=== PATIENT | male | born 1990 | race Caucasian/White ===

== ENCOUNTER → 2016-06-09 | Outpatient (REF) | payer BC ==
[~2016-06-09] MED LIST: ADV250-14 IH; CETI10TA20 PO; HYDR-3702 PO; IBP200T PO; KETO10TA PO; LRT10T PO; MONT10TA21 PO
[2016-06-09 11:51] LABS: BILIRUBIN,URINE Negative (Negative); CLARITY,URINE Clear; COLOR,URINE Yellow; GLUCOSE, URINE (UA) Negative (Negative); LEUKOCYTE ESTERASE ,URINE Negative (Negative); UROBILINOGEN,URINE 0.2 mg/dL (0.2-1.0)
== END ==
LOC: LAB 11:03
PROVIDERS: ATTEND Family Medicine
DX: R30.0 Dysuria (principal)
CPT/HCPCS: 81003

== ENCOUNTER → 2016-09-17 | Outpatient (CLI) | payer BC ==
--- NOTE | 2016-09-17 14:02 | Diagnostic Imaging Report ---
PROCEDURE: CT abdomen and pelvis without contrast. TECHNIQUE: Multiple contiguous axial images were obtained through the abdomen and pelvis without the use of intravenous contrast. INDICATION: Gross hematuria. COMPARISON: None. FINDINGS: The left kidney is markedly atrophic and contains numerous cysts with peripheral calcifications. The right kidney and collecting systems are unremarkable. No radiopaque stones. The lung bases are clear. The liver, pancreas, spleen, adrenals, and appendix are negative. There is a large amount of stool throughout the colon. No evidence of obstruction. No free intraperitoneal air or fluid. No lymphadenopathy. Osseous structures are unremarkable. IMPRESSION: 1. 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 The right kidney is normal on this noncontrast exam. No radiopaque renal stones. 2. Large amount of stool throughout the colon may represent a degree of constipation. Dictated by: Dictated on workstation # [id number]
== END ==
LOC: RAD 11:00
PROVIDERS: ATTEND Family Medicine
DX: R31.0 Gross hematuria (principal); N28.1 Cyst of kidney, acquired
CPT/HCPCS: 74176